=== PATIENT | male | born 1995 | race Hispanic/Latino ===

== ENCOUNTER 2023-03-27 16:06 | Emergency (ER) | payer OTHER ==
[~2023-03-27] VITALS: Ht 175.3 cm; Wt 91.9 kg
[2023-03-27 17:22] LABS: BASO % 0.4 % (0.0-1.0); EOS # 0.2 10^3/uL (0.0-0.5); EOS % 1.8 % (0.0-3.0); HEMOGLOBIN 12.7 g/dl (13.5-17.5); LYMPH # 2.6 10^3/uL (1.5-5.0); LYMPH % 28.3 % (24.0-44.0); MEAN CORPUSCULAR HEMOGLOBIN 26.1 pg (27.0-33.0); MEAN CORPUSCULAR HGB CONC 31.8 g/dl (32.0-36.5); MEAN CORPUSCULAR VOLUME 82.1 fl (80.0-96.0); MONO # 0.8 10^3/uL (0.0-0.8); MONO % 8.4 % (2.0-8.0); NEUTROPHILS # 5.4 10^3/uL (1.5-8.5); PLATELET COUNT, AUTOMATED 289 10^3/uL (150-450); RED BLOOD COUNT 4.87 10^6/uL (4.30-6.10)
[2023-03-27] MEDS ORDERED: ONDANSETRON 4MG 2ML VIAL IV ONE (17:50)
[2023-03-27] MEDS ORDERED: MORPHINE 2 MG/ML 1ML VIAL IV ONE (17:50)
[2023-03-27] MEDS ORDERED: ISOVUE-370 76% 100ML VIAL As Ordered ONE (19:41)
[2023-03-27] MEDS ORDERED: HYDR-3715 PO (20:17)
[2023-03-27] MEDS ORDERED: NORCO 5/325MG TABLET (HOME DOSE PACK) PO ONE (20:20)
[2023-03-27 20:26] VITALS: BP 133/72
== END 2023-03-27 20:47 | disposition home or self-care (01) ==
LOC: EDBD 16:06 → M ED 16:06
DX: S22.20XA Unspecified fracture of sternum, initial encounter for closed fracture (principal); S22.42XA Multiple fractures of ribs, left side, initial encounter for closed fracture; Y93.89 Activity, other specified; Z88.0 Allergy status to penicillin
CPT/HCPCS: 71250; 71275; 80047; 85025; 96374; 96375; 99284; J2405; Q9967

== ENCOUNTER → 2023-04-28 | Outpatient (CLI) | payer OTHER ==
[~2023-04-28] MED LIST: HYDR-3715 PO; PROHANCE 279.3MG/ML 15ML VIAL As Ordered ONE; PROHANCE 279.3MG/ML 5ML VIAL As Ordered ONE
== END ==
LOC: M RAD 15:23
PROVIDERS: ATTEND Nurse Practitioner Family
DX: S82.62XA Displaced fracture of lateral malleolus of left fibula, initial encounter for closed fracture (principal); X58.XXXA Exposure to other specified factors, initial encounter; Y92.9 Unspecified place or not applicable; Y93.9 Activity, unspecified; Y99.9 Unspecified external cause status; M25.472 Effusion, left ankle; S96.212A Strain of intrinsic muscle and tendon at ankle and foot level, left foot, initial encounter; M65.872 Other synovitis and tenosynovitis, left ankle and foot
CPT/HCPCS: 73723; A9576

== ENCOUNTER → 2023-07-29 | Outpatient (CLI) | payer OTHER ==
[~2023-07-29] MED LIST changes: -PROHANCE 279.3MG/ML 15ML VIAL As Ordered ONE; -PROHANCE 279.3MG/ML 5ML VIAL As Ordered ONE
== END ==
LOC: M PLAIMG 09:38
PROVIDERS: ATTEND Physician Assistant
DX: M51.35 Other intervertebral disc degeneration, thoracolumbar region (principal)

== ENCOUNTER → 2023-09-15 | Outpatient (CLI) | payer OTHER | LOC: M RAD 10:42 | PROVIDERS: ATTEND Physician Assistant | DX: S22.080D Wedge compression fracture of T11-T12 vertebra, subsequent encounter for fracture with routine healing (principal); M51.26 Other intervertebral disc displacement, lumbar region; M51.46 Schmorl's nodes, lumbar region ==

== ENCOUNTER → 2023-09-25 | Outpatient (CLI) | payer OTHER ==
[2023-09-25 11:18] LABS: HEMATOCRIT 44.6 % (42.0-52.0); HEMOGLOBIN 14.4 g/dl (13.5-17.5); MEAN CORPUSCULAR HEMOGLOBIN 26.7 pg (27.0-33.0); MEAN CORPUSCULAR HGB CONC 32.3 g/dl (32.0-36.5); MEAN CORPUSCULAR VOLUME 82.6 fl (80.0-96.0); PLATELET COUNT, AUTOMATED 304 10^3/uL (150-450); WHITE BLOOD COUNT 6.8 10^3/uL (4.0-10.0)
[2023-09-25 11:57] LABS: ALBUMIN 4.3 G/DL (3.2-5.2); ALKALINE PHOSPHATASE 88 U/L (46-116); ALT/SGPT 22 U/L (7.0-40); AST/SGOT 25 U/L (<34); BILIRUBIN,DIRECT 0.1 MG/DL (<0.4); BILIRUBIN,TOTAL 0.5 MG/DL (0.3-1.2); BLOOD UREA NITROGEN 17 MG/DL (9-23); CALCIUM LEVEL 9.2 MG/DL (8.5-10.1); CARBON DIOXIDE LEVEL 26 MMOL/L (20-31); CHLORIDE LEVEL 103 MMOL/L (98-107); CREATININE FOR GFR 0.95 MG/DL (0.70-1.30); FOLLICLE STIMULATING HORMONE 2.4 mIU/ML (1.4-18.1); FREE T4 1.14 NG/DL (0.89-1.76); GLOMERULAR FILTRATION RATE > 60.0 (>60); GLUCOSE, FASTING 108 MG/DL (60-100); LUTEINIZING HORMONE 2.8 mIU/ML (1.5-9.3); POTASSIUM SERUM 4.4 MMOL/L (3.5-5.1); PROLACTIN 5.89 NG/ML (2.1-17.7); SODIUM LEVEL 137 MMOL/L (136-145); TOTAL PROTEIN 7.4 G/DL (5.7-8.2)
[2023-09-25 11:58] LABS: PROGESTERONE 0.43 NG/ML (0.28-1.22)
[2023-09-26 15:08] LABS: HCG SERUM TUMOR MARKER QUANT < 1 mIU/mL (0-3); TESTOSTERONE FREE (DIRECT) 7.7 pg/mL (9.3-26.5)
== END ==
LOC: M LAB 10:14
PROVIDERS: ATTEND Physician Assistant
DX: N62 Hypertrophy of breast (principal)

== ENCOUNTER → 2024-02-23 | Outpatient (CLI) | payer OTHER | LOC: M WHC 11:01 | PROVIDERS: ATTEND Plastic Surgery Surgery of the Hand | DX: N64.4 Mastodynia (principal); N62 Hypertrophy of breast | CPT/HCPCS: 77066; G0279 ==

== ENCOUNTER 2024-03-01 05:55 | Day surgery (SDC) | payer OTHER ==
[~2024-03-01] VITALS: Ht 177.8 cm; Wt 93.9 kg
[2024-03-01] MEDS: ceFAZolin SOD 2 GM in IV 1 EA IV ONE (06:00)
[2024-03-01] MEDS ORDERED: LR 1,000 ML IV SCH (06:25)
[2024-03-01] MEDS ORDERED: dexmedeTOMIDine (4MCG/ML)200MCG/50ML BTL (PRECEDEX) As Ordered ONE (06:56)
[2024-03-01] MEDS ORDERED: ONDANSETRON 4MG 2ML VIAL As Ordered ONE (06:56)
[2024-03-01] MEDS ORDERED: propofoL 200 MG/20 ML VIAL As Ordered ONE (06:56)
[2024-03-01] MEDS ORDERED: ROCURONIUM BROMIDE 50MG/5ML VIAL As Ordered ONE (06:56)
[2024-03-01] MEDS ORDERED: SUGAMMADEX SODIUM 500 MG/5 ML VIAL (BRIDION) As Ordered ONE (06:56)
[2024-03-01] MEDS ORDERED: LIDOCAINE 2% 100MG/5ML SDV (FOR ANES.) As Ordered ONE (06:56)
[2024-03-01] MEDS ORDERED: fentaNYL 250 MCG/5 ML INJECTION As Ordered ONE (07:08)
[2024-03-01] MEDS ORDERED: MIDAZOLAM INJ 2MG/2ML VIAL As Ordered ONE (07:08)
[2024-03-01] MEDS: CLINDAMYCIN 900MG/50ML PREMIX BAG As Ordered ONE (07:52)
[2024-03-01] MEDS ORDERED: ACETAMINOPHEN 1000MG 100ML IV BAG As Ordered ONE (08:01)
[2024-03-01] MEDS: EPINEPHrine INJ 1 MG/ML 1ML AMP As Ordered ONE (08:14)
[2024-03-01] MEDS: LIDOCAINE 1% MDV 20ML VIAL As Ordered ONE (08:27)
[2024-03-01] MEDS: EPINEPHrine 1MG/ML INJ 30ML MD-VIAL As Ordered ONE (08:27)
[2024-03-01] MEDS: GENTAMICIN SULF 80MG/2ML VIAL As Ordered ONE (08:30)
[2024-03-01] MEDS: LR 1,000 ML IV SCH (09:50)
[2024-03-01] MEDS ORDERED: ONDANSETRON 4MG 2ML VIAL IV PRN (09:50)
[2024-03-01] MEDS ORDERED: oxyCODONE 5MG TAB PO PRN (09:50)
[2024-03-01] MEDS ORDERED: fentaNYL 100 MCG/2 ML INJECTION IV PRN (09:50)
[2024-03-01] MEDS: HYDROMORPHONE HCL 0.5 MG/ 0.5 ML SYRINGE IV PRN (10:26)
[2024-03-01] MEDS ORDERED: PERCOCET PO (16:00)
[2024-03-01] MEDS: PERCOCET 5MG/325MG TAB PO ONE (16:01)
[2024-03-01 16:32] VITALS: BP 121/68; TEMP 97.9; O2SAT 99
== END 2024-03-01 16:36 | disposition home or self-care (01) ==
LOC: M SDC 05:55
PROVIDERS: ATTEND Plastic Surgery Surgery of the Hand
DX: N62 Hypertrophy of breast (principal); Z88.0 Allergy status to penicillin; G47.33 Obstructive sleep apnea (adult) (pediatric)
CPT/HCPCS: 19300; 88305; C9290; J0131; J0171; J0665; J0737; J1100; J1170; J1580; J2250; J2405; J3010

== ENCOUNTER → 2024-08-12 | Outpatient (CLI) | payer OTHER ==
[~2024-08-12] MED LIST changes: +PERCOCET PO
== END ==
LOC: M PLARAD 12:28
PROVIDERS: ATTEND Physician Assistant
DX: M67.52 Plica syndrome, left knee (principal)

== ENCOUNTER → 2024-09-26 | Outpatient (CLI) | payer OTHER | LOC: M RAD 10:55 | PROVIDERS: ATTEND Physician Assistant | DX: M54.50 Low back pain, unspecified (principal); M47.26 Other spondylosis with radiculopathy, lumbar region; M47.817 Spondylosis without myelopathy or radiculopathy, lumbosacral region ==

== ENCOUNTER 2024-11-10 13:09 | Emergency (ER) | payer OTHER ==
[~2024-11-10] VITALS: Ht 175.3 cm; Wt 95.5 kg
[2024-11-10] MEDS ORDERED: NAPR-885 (13:19)
[2024-11-10 15:19] VITALS: BP 138/77; TEMP 99; O2SAT 98
[2024-11-10] MEDS: IBUPROFEN 600MG TAB PO ONE (17:00)
[2024-11-10] MEDS ORDERED: IBUP-1022 PO (17:00)
== END 2024-11-10 17:13 | disposition home or self-care (01) ==
LOC: M ED 13:09
DX: S93.401A Sprain of unspecified ligament of right ankle, initial encounter (principal); X50.1XXA Overexertion from prolonged static or awkward postures, initial encounter; Y92.009 Unspecified place in unspecified non-institutional (private) residence as the place of occurrence of the external cause; Y93.89 Activity, other specified; Y99.9 Unspecified external cause status